=== PATIENT | female | born 1970 | race Caucasian/White ===

== ENCOUNTER 2018-11-10 16:53 | Emergency (ER) | payer OTHER, SELFPAY ==
[2018-11-10 16:55] VITALS: BP 167/87; PULSE 103; RESP 16; TEMP 36.3; O2SAT 99
--- NOTE | 2018-11-10 17:01 | W.ED.GENAD ---
Discharge Plan Disposition Patient Disposition: HOME Condition: Fair Discharge Details Chief Complaint: RespSymp Clinical Impression: URI (upper respiratory infection) Primary Care Provider: None,None ED Provider: Addis Daniel Home Meds and New Rx's Prescriptions: No Action No Known Home Meds RF: 0 Discharge Instructions Instructions: Upper Respiratory Infection (ED) Additional Instructions: Encourage hydration. Tylenol and/or Ibuprofen as needed for discomfort. Honey or lozenges to help with sore throat. If you develop shortness of breath, difficulty breathing, inability to stay hydrated or other new/worsening symptoms please seek care urgently once again. If symptoms are not improving over the next week please follow up with primary care. Wash hands frequently. Stand Alone Forms: Work Release Discharge Data Discharge Date/Time-TO BE ENTERED AT DEPARTURE: 11/10/18 17:33 Medical Decision Making Patient is a 47 year old female presenting today with c/c of URI. Endorses cough, sore throat, congestion, bilateral ear pain that began yesterday. No SOB or CP. Denies fevers. No GI upset. Patient is post menopausal. Tachy at 103. Appears comfortable and nontoxic. Has not taken anything for discomfort. Will give Tylenol, Ibuprofen and have her hydrate. Advised this is likely viral. Encouraged hydration. Discussed home remedies and OTC medications that may help with symptomatic management. Discussed new/worsening symptoms and when to seek care urgently once again. All of her questions and concerns were addressed, she is in agreement with this plan. REquesting work note for tomorrow. Patient feels improved after Tylenol and Ibuprofen. HR 100. Remains afebrile. She does not have PCP, have asked our gericare aide to help arrange for f/u . Given return precautions, she lives locally and is able to return with worsening symptoms. HPI General Mode of arrival: ambulatory. Date/Time Provider Initiated Documentation: 11/10/18 16:53. Limitations to Documentation: no limitations. Information obtained by: patient. History of Present Illness 47 year old F presents to the emergency department with the chief complaint of URI, described as moderate, Quality is described as aching (sore throat), Patient reports no radiation. Patient started experiencing this day(s) and it has been constant. No relieving factors improve symptom(s), No exacerbating factors reported . Patient notes cough; denies chest pain, fever/chills, headaches, loss of appetite, nausea/vomiting, rash and shortness of breath. Patient did receive the following treatments prior to arrival, none Related Data Home Medications Medication Instructions Recorded Confirmed Unknown [No Known Home Meds] 06/14/18 11/10/18 Allergies Allergy/AdvReac Type Severity Reaction Status Date / Time Sulfa (Sulfonamide Allergy Intermediate Skin Rash Unverified 11/10/18 16:58 Antibiotics) General Stated Complaint: RespSymp ELENI: 4 Review of Systems Constitutional Reports as per HPI and Denies headache(s) Eyes Reports as per HPI, Denies eye discharge and Denies irritation ENT Reports as per HPI, Denies ear discharge, Reports otalgia, Denies headache(s), Reports nasal congestion, Reports nasal discharge, Denies sinus pressure and Reports sore throat Cardiovascular Reports as per HPI, Denies chest pain and Denies dyspnea Respiratory Reports as per HPI, Reports chest congestion, Reports cough, Denies pain on inspiration, Denies pain with cough and Denies dyspnea Gastrointestinal Reports as per HPI, Denies abdominal pain, Denies change in bowel habits, Denies nausea and Denies vomiting Integumentary/Breasts Reports as per HPI and Denies rash Neurologic Denies headache(s) [facility] Social History Smoking/Tobacco Use Status: Never Exam Const General: cooperative, healthy appearing, comfortable, no acute distress, well developed and well groomed Nutritional Appearance: average body habitus and well nourished Orientation: alert and awake [facility] Head: normal to inspection, normocephalic and atraumatic Ears: hearing grossly normal bilaterally, external ears normal and TM's normal bilaterally General nose exam: external nose normal and nares normal Face and sinus: normal facial exam, sinuses nontender and face symmetric Mouth: oral mucosae normal, lip normal, tongue normal, oropharynx normal and moist mucous membranes Teeth and gingiva: dentition normal Throat: posterior oropharynx normal, tonsils normal and uvula midline Eyes General: appearance normal, both eyes and all related structures Neck Neck: normal visual inspection, full ROM, no lymphadenopathy and no meningeal signs Resp Effort & Inspection: normal respiratory effort, able to speak in complete sentences and no respiratory distress Auscultation: clear to auscultation bilaterally, no rales, no rhonchi and no wheezes Cardio Rate: regular rate Rhythm: regular rhythm Heart Sounds: S1 normal and S2 normal Skin General skin exam: no rashes or lesions noted Neuro General: alert and awake Cognition: normal cognition Speech: speech normal Gait: normal gait Psych Appearance: grossly normal and well kempt Mental Status: mental status grossly normal Speech and Movement: speech and movement normal Course Vital Signs Temperature 36.3 C L 11/10/18 16:55 Pulse 103 H 11/10/18 16:55 Respiratory Rate 16 11/10/18 16:55 Blood Pressure 167/87 H 11/10/18 16:55 Pulse Oximetry 99 11/10/18 16:55 Temperature 36.3 C L 11/10/18 16:55 Temperature Source Skin 11/10/18 16:55 Pulse 103 H 11/10/18 16:55 Respiratory Rate 16 11/10/18 16:55 Respiratory Effort Non-Labored 11/10/18 16:57 Blood Pressure 167/87 H 11/10/18 16:55 Pulse Oximetry 99 11/10/18 16:55 Pain Level 8 11/10/18 16:55
--- NOTE | 2018-11-10 17:10 | ED.GENADUL_ITS ---
Discharge Plan Disposition Patient Disposition: HOME Condition: Fair Discharge Details Chief Complaint: RespSymp Clinical Impression: URI (upper respiratory infection) Primary Care Provider: None,None ED Provider: Addis Daniel Home Meds and New Rx's Prescriptions: No Action No Known Home Meds RF: 0 Discharge Instructions Instructions: Upper Respiratory Infection (ED) Additional Instructions: Encourage hydration. Tylenol and/or Ibuprofen as needed for discomfort. Honey or lozenges to help with sore throat. If you develop shortness of breath, difficulty breathing, inability to stay hydrated or other new/worsening symptoms please seek care urgently once again. If symptoms are not improving over the next week please follow up with primary care. Wash hands frequently. Stand Alone Forms: Work Release Discharge Data Discharge Date/Time-TO BE ENTERED AT DEPARTURE: 11/10/18 17:33 Medical Decision Making Patient is a 47 year old female presenting today with c/c of URI. Endorses cough, sore throat, congestion, bilateral ear pain that began yesterday. No SOB or CP. Denies fevers. No GI upset. Patient is post menopausal. Tachy at 103. Appears comfortable and nontoxic. Has not taken anything for discomfort. Will give Tylenol, Ibuprofen and have her hydrate. Advised this is likely viral. Encouraged hydration. Discussed home remedies and OTC medications that may help with symptomatic management. Discussed new/worsening symptoms and when to seek care urgently once again. All of her questions and concerns were addressed, she is in agreement with this plan. REquesting work note for tomorrow. Patient feels improved after Tylenol and Ibuprofen. HR 100. Remains afebrile. She does not have PCP, have asked our home child care provider to help arrange for f/u . Given return precautions, she lives locally and is able to return with worsening symptoms. HPI General Mode of arrival: ambulatory . Date/Time Provider Initiated Documentation: 11/10/18 16:53 . Limitations to Documentation: no limitations . Information obtained by: patient . History of Present Illness 47 year old F pr esents to the emergency department with the chief complaint of URI, described as moderate, Quality is described as aching (sore throat), Patient reports no radiation. Patient started experiencing this day(s) and it has been constant. No relieving factors improve symptom(s), No exacerbating factors reported . Patient notes cough; denies chest pain, fever/chills, headaches, loss of appetite, nausea/vomiting, rash and shortness of breath. Patient did receive the following treatments prior to arrival, none Related Data Home Medications Medication Instructions Recorded Confirmed Unknown [No Known Home Meds] 06/14/18 11/10/18 Allergies Allergy/AdvReac Type Severity Reaction Status Date / Time Sulfa (Sulfonamide Allergy Intermediate Skin Rash Unverified 11/10/18 16:58 Antibiotics) General Stated Complaint: RespSymp ELENI: 4 Review of Systems Constitutional Reports as per HPI and Denies headache(s) Eyes Reports as per HPI, Denies eye discharge and Denies irritation ENT Reports as per HPI, Denies ear discharge, Reports otalgia, Denies headache(s), Reports nasal congestion, Reports nasal discharge, Denies sinus pressure and Reports sore throat Cardiovascular Reports as per HPI, Denies chest pain and Denies dyspnea Respiratory Reports as per HPI, Reports chest congestion, Reports cough, Denies pain on inspiration, Denies pain with cough and Denies dyspnea Gastrointestinal Reports as per HPI, Denies abdominal pain, Denies change in bowel habits, Denies nausea and Denies vomiting Integumentary/Breasts Reports as per HPI and Denies rash Neurologic Denies headache(s) [facility] Social History Smoking/Tobacco Use Status: Never Exam Const General: cooperative, healthy appearing, comfortable, no acute distress, well developed and well groomed Nutritional Appearance: average body habitus and well nourished Orientation: alert and awake [facility] Head: normal to inspection, normocephalic and atraumatic Ears: hearing grossly normal bilaterally, external ears normal and TM's normal bilaterally General nose exam: external nose normal and nares normal Face and sinus: normal facial exam, sinuses nontender and face symmetric Mouth: oral mucosae normal, lip normal, tongue normal, oropharynx normal and m oist mucous membranes Teeth and gingiva: dentition normal Throat: posterior oropharynx normal, tonsils normal and uvula midline Eyes General: appearance normal, both eyes and all related structures Neck Neck: normal visual inspection, full ROM, no lymphadenopathy and no meningeal signs Resp Effort & Inspection: normal respiratory effort, able to speak in complete sentences and no respiratory distress Auscultation: clear to auscultation bilaterally, no rales, no rhonchi and no wheezes Cardio Rate: regular rate Rhythm: regular rhythm Heart Sounds: S1 normal and S2 normal Skin General skin exam: no rashes or lesions noted Neuro General: alert and awake Cognition: normal cognition Speech: speech normal Gait: normal gait Psych Appearance: grossly normal and well kempt Mental Status: mental status grossly normal Speech and Movement: speech and movement normal Course Vital Signs Temperature 36.3 C L 11/10/18 16:55 Pulse 103 H 11/10/18 16:55 Respiratory Rate 16 11/10/18 16:55 Blood Pressure 167/87 H 11/10/18 16:55 Pulse Oximetry 99 11/10/18 16:55 Temperature 36.3 C L 11/10/18 16:55 Temperature Source Skin 11/10/18 16:55 Pulse 103 H 11/10/18 16:55 Respiratory Rate 16 11/10/18 16:55 Respiratory Effort Non-Labored 11/10/18 16:57 Blood Pressure 167/87 H 11/10/18 16:55 Pulse Oximetry 99 11/10/18 16:55 Pain Level 8 11/10/18 16:55
[2018-11-10] MEDS: Acetaminophen 500 MG TAB 1000 MG PO (17:13)
[2018-11-10] MEDS: Ibuprofen 600 MG TAB PO (17:13)
== END 2018-11-10 17:33 | disposition home or self-care (01) ==
LOC: ER 17:26
PROVIDERS: Emergency Provider Physician Assistant
DX: J06.9 Acute upper respiratory infection, unspecified (principal)
CPT/HCPCS: 99283

== ENCOUNTER 2018-11-15 10:06 | Emergency (ER) | payer OTHER, SELFPAY ==
[2018-11-15 10:14] VITALS: BP 152/90; PULSE 93; RESP 16; TEMP 36.4; O2SAT 96
--- NOTE | 2018-11-15 10:33 | W.ED.GENAD ---
Discharge Plan Disposition Patient Disposition: HOME Condition: Stable Discharge Details Chief Complaint: Sorethroat Clinical Impression: URI (upper respiratory infection) Primary Care Provider: Lorena Vance ED Provider: Feliciano Smith Home Meds and New Rx's Prescriptions: New benzonatate 200 mg capsule 200 mg PO TID PRN (Reason: cough) Qty: 30 RF: 0 fluticasone [Flonase Allergy Relief] 50 mcg/actuation spray,suspension 1 spray ISAIAS DAILY PRN (Reason: nasal congestion) Qty: 9.9 RF: 0 Discharge Instructions Instructions: Upper Respiratory Infection (ED) Additional Instructions: Please take prescribed medication as needed for symptoms and may also use [id number] cough and cold medication such as Tylenol cold and flu severe, Robitussin-DM, or other symptomatic medication just take as directed on packaging. If not improving over the next week please follow-up with your primary care provider for reassessment and feel free to return for any new or significant worsening of your symptoms. Referrals: Lorena Vance MD [Primary Care Provider] - (As needed for reassessment) Discharge Data Discharge Date/Time-TO BE ENTERED AT DEPARTURE: 11/15/18 10:58 Medical Decision Making Patient presenting to the emergency department for chief complaint of cold symptoms. Patient states that symptoms started approximately 6 days ago and she has had persistent nasal congestion, sinus pressure, sore throat, earache and cough. Patient states a day into illness she presented to the emergency department for evaluation and was diagnosed with viral illness and informed to take Tylenol. She states that she has been doing this but has had continued symptoms with some slight increase in nasal mucus production. Physical exam shows sinus tenderness, mildly erythematous posterior pharynx, normal TMs what is able to be visualized due to cerumen impaction, no lymphadenopathy, no tachycardia, normal lung sounds. Patient is afebrile and denies any recent fevers over the past 48 hours. Patient has no signs of meningitis, peritonsillar or retropharyngeal abscess, is nontoxic in appearance but does appear ill but comfortable. I feel that patient is having symptoms consistent with continued URI and there appears to be no emergent change in condition and no signs of bacterial illness given that patient is still within the window of more viral etiology. Patient was encouraged to take more than just plain acetaminophen for symptoms but he is more symptomatic medications such as Robitussin-DM, Tylenol cold and flu severe, and other decongestants. Patient was prescribed Flonase along with Tessalon Perles for symptoms and encouraged to follow-up with primary care if not improving over the next week. After discussion of diagnosis and plan of care patient has no further needs, questions, or concerns and states clear understanding to return to the emergency department for any worsening symptoms. HPI General Mode of arrival: ambulatory. Date/Time Provider Initiated Documentation: 11/15/18 10:20. Limitations to Documentation: no limitations. Information obtained by: patient, RN notes reviewed and old records reviewed. History of Present Illness 48 year old F presents to the emergency department with the chief complaint of cold symptoms, described as moderate, with intensity rated at 5. Quality is described as other (pressure), and is localized to the face (sinus). Patient started experiencing this day(s) (6) and it has been constant. No relieving factors improve symptom(s), No exacerbating factors reported . Patient did receive the following treatments prior to arrival, other (Tylenol) Related Data Home Medications Medication Instructions Recorded Confirmed benzonatate 200 mg PO TID PRN #30 cap 11/15/18 fluticasone [Flonase Allergy 1 spray ISAIAS DAILY PRN #9.9 gm 11/15/18 Relief] Previous Rx's Medication Instructions Recorded benzonatate 200 mg PO TID PRN #30 cap 11/15/18 fluticasone [Flonase Allergy 1 spray ISAIAS DAILY PRN #9.9 gm 11/15/18 Relief] Allergies Allergy/AdvReac Type Severity Reaction Status Date / Time Sulfa (Sulfonamide Allergy Intermediate Hives Unverified 11/15/18 10:17 Antibiotics) General Stated Complaint: Sorethroat ELENI: 4 Review of Systems Constitutional Denies body ache(s), Reports chills, Denies fever(s), Reports headache(s) and Reports malaise Eyes Denies eye discharge ENT Reports as per HPI, Reports otalgia, Reports headache(s), Reports nasal congestion, Reports nasal discharge, Denies neck pain, Reports sinus pain, Reports sinus pressure, Reports sore throat and Denies throat swelling Cardiovascular Denies chest pain and Denies dyspnea Respiratory Reports cough and Denies dyspnea Musculoskeletal Denies joint swelling and Denies neck pain Integumentary/Breasts Denies rash Neurologic Reports headache(s) Allergic/Immunologic Denies throat swelling [facility] Social History Smoking/Tobacco Use Status: Never Exam Const General: cooperative, comfortable and no acute distress Orientation: alert and awake [facility] Head: normal to inspection, normocephalic and atraumatic Ears: hearing grossly normal bilaterally and TM's normal bilaterally General nose exam: external nose normal Face and sinus: no erythema and sinus tenderness frontal and maxillary Mouth: oral mucosae normal, tongue normal, no drooling, no muffled voice and no trismus Throat: uvula midline and posterior oropharynx abnormal erythema (mild) Neck Neck: normal visual inspection, full ROM, no lymphadenopathy, no meningeal signs, trachea midline and supple Resp Effort & Inspection: normal respiratory effort, able to speak in complete sentences and cough Quality of cough: dry Auscultation: clear to auscultation bilaterally Cardio Rate: regular rate Rhythm: regular rhythm Heart Sounds: S1 normal, S2 normal, normal S1 and S2, no click, no gallops, no murmurs and no rubs Skin General skin exam: no rashes or lesions noted and dry skin (warm) Neuro General: alert, awake, oriented x3, gait normal and moves all extremities Cognition: normal cognition Speech: speech normal Course Vital Signs Temperature 36.4 C L 11/15/18 10:14 Pulse 93 H 11/15/18 10:14 Respiratory Rate 16 11/15/18 10:14 Blood Pressure 152/90 H 11/15/18 10:14 Pulse Oximetry 96 11/15/18 10:14 Temperature 36.4 C L 11/15/18 10:14 Temperature Source Skin 11/15/18 10:14 Pulse 93 H 11/15/18 10:14 Respiratory Rate 16 11/15/18 10:14 Respiratory Effort Non-Labored 11/15/18 10:14 Blood Pressure 152/90 H 11/15/18 10:14 Blood Pressure Position Sitting 11/15/18 10:14 Pulse Oximetry 96 11/15/18 10:14 Oxygen Delivery Method Room Air 11/15/18 10:14 Oxygen Flow Rate 0 11/15/18 10:14 Pain Level 0 11/15/18 10:14 Lab/Test Results Lab/Test Results: 11/15/18 10:13 Pharynx Streptococcus Screen (GILBERTO) - Pending POC Strep Test-BECCA(Rapid) Start: 11/15/18 10:15 Freq: .Rapid Strep Test Status: Active Protocol: Document 11/15/18 10:21 SGL (Rec: 11/15/18 10:21 SGL [id number]) Strep test-BECCA(Rapid)-POC POC-Strep test-BECCA (Rapid) Negative POC-Strep test-BECCA (Rapid) Negative
== END 2018-11-15 10:58 | disposition home or self-care (01) ==
PROVIDERS: Emergency Provider Nurse Practitioner Family; PCP Family Medicine
DX: J06.9 Acute upper respiratory infection, unspecified (principal)
CPT/HCPCS: 87880; 99283; 87081

== ENCOUNTER 2019-01-10 09:40 | Emergency (ER) | payer OTHER, SELFPAY ==
[2019-01-10 09:48] VITALS: BP 135/85; PULSE 79; RESP 20; TEMP 36.5; O2SAT 97
--- NOTE | 2019-01-10 10:13 | W.ED.GENAD ---
Discharge Plan Disposition Patient Disposition: HOME Condition: Stable Discharge Details Chief Complaint: Orthopedic Clinical Impression: Knee pain, right Primary Care Provider: Lorena Vance ED Provider: Jarvis Thrasher Home Meds and New Rx's Prescriptions: New gabapentin 300 mg capsule 300 mg PO TID Qty: 60 RF: 0 Discharge Instructions Instructions: Knee Pain (ED) Additional Instructions: you can take 1000mg tylenol and 600mg ibuprofen every 6 hours for pain as needed follow up with your primary care provider in 1-2 weeks if you develop fevers, significant leg swelling or the knee becomes red and swollen return to the emergency department for reevaluation Stand Alone Forms: Work Release Medical Decision Making pt states she has had right knee munira for 3 yeras. Denies recent falls or other trauma. She has not had fevers. On exam she has full rom of the knee, has pain over both medial and lateral joint lines with no swelling, redness or warmth on exam. No leg swelling or calf pain and intact distal sensation. Based on exam doubt septic joint, dvt. No systemic symptoms to suggest osteo. I suspect arthritis. Given no trauma, full rom and bearinb weight do not feel xray indicated. Will have her start nsaids, tylenol and gabapentin and advised f/u with pcp if pain continues, return precautions given Differential Diagnosis arthritis, sprain, strain HPI General Mode of arrival: ambulatory. Date/Time Provider Initiated Documentation: 01/10/19 09:58. Limitations to Documentation: no limitations. Information obtained by: patient. History of Present Illness 48 year old F presents to the emergency department with the chief complaint of right knee pain, described as moderate, with intensity rated at 5. Quality is described as aching, and is localized to the right and lower extremity. Patient reports no radiation. Patient started experiencing this year(s) (3) and it has been constant. No relieving factors improve symptom(s), No exacerbating factors reported . Patient notes no other symptoms.. Patient did receive the following treatments prior to arrival, NSAID Related Data Home Medications Medication Instructions Recorded Confirmed gabapentin 300 mg PO TID #60 cap 01/10/19 Previous Rx's Medication Instructions Recorded gabapentin 300 mg PO TID #60 cap 01/10/19 Allergies Allergy/AdvReac Type Severity Reaction Status Date / Time Sulfa (Sulfonamide Allergy Intermediate Hives Unverified 01/10/19 09:49 Antibiotics) General Stated Complaint: Orthopedic ELENI: 4 Review of Systems Review of Systems All systems reviewed & are unremarkable except as noted in HPI and below Constitutional Denies chills and Denies fever(s) Respiratory Denies cough Gastrointestinal Denies abdominal pain, Denies nausea and Denies vomiting Musculoskeletal Denies joint swelling Integumentary/Breasts Denies rash PFSH Social History Smoking and Tabacco status: Never Exam Const General: no acute distress Orientation: alert [facility] Head: normal to inspection Ears: external ears normal General nose exam: external nose normal Mouth: moist mucous membranes Eyes General: appearance normal, both eyes and all related structures Neck Neck: normal visual inspection Resp Effort & Inspection: normal respiratory effort and able to speak in complete sentences Cardio Rate: regular rate Skin General skin exam: no rashes or lesions noted Neuro General: alert and oriented x3 Extrem General: normal to inspection Psych Mental Status: mental status grossly normal Course Vital Signs Temperature 36.5 C 01/10/19 09:48 Pulse 79 01/10/19 09:48 Respiratory Rate 20 01/10/19 09:48 Blood Pressure 135/85 01/10/19 09:48 Pulse Oximetry 97 01/10/19 09:48 Temperature 36.5 C 01/10/19 09:48 Temperature Source Temporal Artery Scan 01/10/19 09:48 Pulse 79 01/10/19 09:48 Respiratory Rate 20 01/10/19 09:48 Respiratory Effort Non-Labored 01/10/19 09:48 Blood Pressure 135/85 01/10/19 09:48 Blood Pressure Position Sitting 01/10/19 09:48 Pulse Oximetry 97 01/10/19 09:48 Oxygen Delivery Method Room Air 01/10/19 09:48 Oxygen Flow Rate 0 01/10/19 09:48 Pain Level 5 01/10/19 09:50
--- NOTE | 2019-01-10 10:17 | ED.GENADUL_ITS ---
Discharge Plan Disposition Patient Disposition: HOME Condition: Stable Discharge Details Chief Complaint: Orthopedic Clinical Impression: Knee pain, right Primary Care Provider: Lorena Vance ED Provider: Jarvis Thrasher Home Meds and New Rx's Prescriptions: New gabapentin 300 mg capsule 300 mg PO TID Qty: 60 RF: 0 Discharge Instructions Instructions: Knee Pain (ED) Additional Instructions: you can take 1000mg tylenol and 600mg ibuprofen every 6 hours for pain as needed follow up with your primary care provider in 1-2 weeks if you develop fevers, significant leg swelling or the knee becomes red and swollen return to the emergency department for reevaluation Stand Alone Forms: Work Release Medical Decision Making pt states she has had right knee munira for 3 yeras. Denies recent falls or other trauma. She has not had fevers. On exam she has full rom of the knee, has pain over both medial and lateral joint lines with no swelling, redness or warmth on exam. No leg swelling or calf pain and intact distal sensation. Based on exam doubt septic joint, dvt. No systemic symptoms to suggest osteo. I suspect arthritis. Given no trauma, full rom and bearinb weight do not feel xray indicated. Will have her start nsaids, tylenol and gabapentin and advised f/u with pcp if pain continues, return precautions given Differential Diagnosis arthritis, sprain, strain HPI General Mode of arrival: ambulatory . Date/Time Provider Initiated Documentation: 01/10/19 09:58 . Limitations to Documentation: no limitations . Information obtained by: patient . History of Present Illness 48 year old F presents to the emergency department with the chief complaint of right knee pain, described as moderate, with intensity rated at 5. Quality is described as aching, and is localized to the right and lower extremity. Patient reports no radiation. Patient started experiencing this year(s) (3) and it has been constant. No relieving factors improve symptom(s), No exacerbating factors reported . Patient notes no other symptoms.. Patient did receive the following treatments prior to arrival, NSAID Related Data Home Medications Medication Instructions Recorded Confirmed gabapentin 300 mg PO TID #60 cap 01/10/19 Previous Rx's Medication Instructions Recorded gabapentin 300 mg PO TID #60 cap 01/10/19 Allergies Allergy/AdvReac Type Severity Reaction Status Date / Time Sulfa (Sulfonamide Allergy Intermediate Hives Unverified 01/10/19 09:49 Antibiotics) General Stated Complaint: Orthopedic ELENI: 4 Review of Systems Review of Systems All systems reviewed & are unremarkable except as noted in HPI and below Constitutional Denies chills and Denies fever(s) Respiratory Denies cough Gastrointestinal Denies abdominal pain, Denies nausea and Denies vomiting Musculoskeletal Denies joint swelling Integumentary/Breasts Denies rash PFSH Social History Smoking and Tabacco status: Never Exam Const General: no acute distress Orientation: alert [facility] Head: normal to inspection Ears: external ears normal General nose exam: external nose normal Mouth: moist mucous membranes Eyes General: appearance normal, both eyes and all related structures Neck Neck: normal visual inspection Resp Effort & Inspection: normal respiratory effort and able to speak in complete sentences Cardio Rate: regular rate Skin General skin exam: no rashes or lesions noted Neuro General: alert and oriented x3 Extrem General: normal to inspection Psych Mental Status: mental status grossly normal Course Vital Signs Temperature 36.5 C 01/10/19 09:48 Pulse 79 01/10/19 09:48 Respiratory Rate 20 01/10/19 09:48 Blood Pressure 135/85 01/10/19 09:48 Pulse Oximetry 97 01/10/19 09:48 Temperature 36.5 C 01/10/19 09:48 Temperature Source Temporal Artery Scan 01/10/19 09:48 Pulse 79 01/10/19 09:48 Respiratory Rate 20 01/10/19 09:48 Respiratory Effort Non-Labored 01/10/19 09:48 Blood Pressure 135/85 01/10/19 09:48 Blood Pressure Position Sitting 01/10/19 09:48 Pulse Oximetry 97 01/10/19 09:48 Oxygen Delivery Method Room Air 01/10/19 09:48 Oxygen Flow Rate 0 01/10/19 09:48 Pain Level 5 01/10/19 09:50
== END 2019-01-10 10:21 | disposition home or self-care (01) ==
PROVIDERS: Emergency Provider Emergency Medicine; PCP Nurse Practitioner Family
DX: M25.561 Pain in right knee (principal)
CPT/HCPCS: 99282

== ENCOUNTER 2019-01-14 12:08 | Outpatient (REF) | payer OTHER, SELFPAY ==
[2019-01-15 13:42] LABS: Chlamydia Result Negative; GC Result Negative; Specimen Description URINE
== END 2019-01-14 12:28 ==
LOC: NCHCN 12:08
PROVIDERS: PCP Nurse Practitioner Family; Visit Provider Nurse Practitioner Family
DX: Z11.3 Encounter for screening for infections with a predominantly sexual mode of transmission (principal); Z00.00 Encounter for general adult medical examination without abnormal findings
CPT/HCPCS: 87491; 87591

== ENCOUNTER 2019-01-21 07:16 | Outpatient (CLI) | payer OTHER, SELFPAY ==
[2019-01-22 09:58] LABS: HIV-1/2 Ag & Ab Screen Negative (NEGAT)
[2019-01-22 12:35] LABS: Syphilis Serology (RPR) Negative (Negative)
== END 2019-01-21 07:36 ==
PROVIDERS: PCP Nurse Practitioner Family; Visit Provider Nurse Practitioner Family
DX: Z00.00 Encounter for general adult medical examination without abnormal findings (principal); Z11.4 Encounter for screening for human immunodeficiency virus [HIV]; Z11.3 Encounter for screening for infections with a predominantly sexual mode of transmission; K92.1 Melena
CPT/HCPCS: 36415; 87389; 86592

== ENCOUNTER 2019-01-28 00:51 | Outpatient (CLI) | payer OTHER, SELFPAY ==
--- NOTE | 2019-01-28 08:01 | DI.MAMMO_ITS ---
SYMPTOM/DIAGNOSIS: SCREEN, H/O FIBROCYSTIC BREAST DISEASE MAMMOGRAM: Mammograms were interpreted according to the usual protocol including computer analysis with CAD system, tomosynthesis and C view imaging. No priors for comparison. Breast density B. No suspicious masses or microcalcifications are seen. There is no definite evidence of malignancy. IMPRESSION: Category 1-B. Negative mammogram. Routine screening is recommended. [facility] ASSESSMENT OF FINDINGS: Negative. Category 1. Patient will receive a letter notifying them of these results. BI-RADS category B. There are scattered areas of fibroglandular density.
== END 2019-01-28 01:11 ==
PROVIDERS: PCP Nurse Practitioner Family; Visit Provider Nurse Practitioner Family
DX: Z12.31 Encounter for screening mammogram for malignant neoplasm of breast (principal)
CPT/HCPCS: 77063; 77067

== ENCOUNTER 2019-01-28 11:10 | Outpatient (REF) | payer OTHER, SELFPAY ==
--- NOTE | 2019-01-28 09:45 | PAPFT_PTH ---
PATIENT: Jacquie Mcguire LOC: [facility] U#:[id number] AGE/SX: 48/F ROOM: RE01/28/[address]: Vicente Whitehead : 1970 BED: DIS: 01/28/2019 SPEC #: [id number] RECD: 01/28/19 12:54 STATUS: BERTO REQ #: [id number] JEROMY: 01/28/19 09:[address]: Vicente Whitehead DEPT: [facility] Cytology RECD BY: Tuan Pereyra Tissues: 1 - CX/ENDOCX FOR PAP SMEARS Procedures: PAP THIN PREP/UVM Screening HPV DNA PROBE Comments: [id number]
[2019-01-28 13:05] LABS: Absolute Basophil Count 0.09 k/cumm (0.0-0.2); Absolute Eosinophil Count 0.23 k/cumm (0.0-0.7); Absolute Monocyte Count 0.53 k/cumm (0.11-0.7); Absolute Neutrophil Count 1.53 k/cumm (1.2-6.7); Basophils % 2.3; Eosinophils % 5.9; HCT 44.2 % (36.0-46.0); HGB 14.5 g/dL (12.0-15.5); Lymphocytes % 38.7; Mean Corp. HGB Concentration 32.8 g/dL (32.0-36.0); Mean Corpuscular Hemoglobin 29.1 pg (27.0-33.0); Mean Corpuscular Volume 88.8 fL (80-95); Mean Platelet Volume 9.6 fL (8.0-11.0); Monocytes % 13.7; Neutrophils % 39.4; Platelet Count 360 x1000/uL (130-400); RBC 4.98 m/cumm (4.00-5.20); RBC Distribution Width 14.3 % (11.7-14.6); White Blood Cell Count 3.88 k/cumm (4.4-10.8)
[2019-01-28 13:18] LABS: ALT 35 U/L (12-78); AST 25 U/L (15-37); Albumin 4.1 g/dL (3.4-5.0); Alkaline Phosphatase 113 U/L (46-116); Anion Gap 8.2 mmol/L (3-11); BUN 21 mg/dL (7-18); Bilirubin, Total 0.5 mg/dL (0.2-1.0); CO2 28.8 mmol/L (21.0-32.0); CREATININE 0.68 mg/dL (0.55-1.02); Chloride 103 mmol/L (98-107); Cholesterol 228 mg/dL (50-200); Glucose 90 mg/dL (70-100); HDL Cholesterol 73 mg/dL (40-60); LDL CHOLESTEROL 140 mg/dL (<100); Potassium 4.6 mmol/L (3.5-5.1); Sodium 140 mmol/L (136-145); Total Protein 7.9 g/dL (6.4-8.2); Triglyceride 81 mg/dL (30-150)
== END 2019-01-28 11:30 ==
LOC: NCHCN 11:10
PROVIDERS: PCP Nurse Practitioner Family; Visit Provider Nurse Practitioner Family
DX: Z00.00 Encounter for general adult medical examination without abnormal findings (principal); K21.9 Gastro-esophageal reflux disease without esophagitis; K92.1 Melena; Z13.220 Encounter for screening for lipoid disorders; Z87.898 Personal history of other specified conditions; Z12.4 Encounter for screening for malignant neoplasm of cervix; Z11.51 Encounter for screening for human papillomavirus (HPV)
CPT/HCPCS: 80053; 80061; 83721; 88142; 85025; 87624

== ENCOUNTER 2019-02-09 08:04 | Day surgery (SDC) | payer OTHER, SELFPAY ==
--- NOTE | 2019-02-09 06:51 | ENDO_ITS ---
Date of service: 02/09/19 Time of Service: 08:53 Endoscopy Report DATE OF PROCEDURE: 02/09/19 PRE-OP DIAGNOSIS: Rectal bleeding and Heart Burn POST-OP DIAGNOSIS: other (Normal upper endoscopy/ colorectal polyps/ grade 2 internal hemorrhoids) PROCEDURE: 1. EGD 2. Colonoscopy with polypectomy by cold forceps and hot snare SURGEON: Yuliana Geiger ANESTHESIA: other (General/ ASA 2 /Krystian Gonzalez CRNA) ESTIMATED BLOOD LOSS: 5 PATHOLOGY: other (Descending polyp and sigmoid polyp) COMPLICATIONS: None DISPOSITION: same day INDICATIONS: Mrs. Mcguire is a pleasant 48 year old female who was seen in the office for rectal bleeding and heart burn. Patient is on omeprazole 20 mg daily. Risks, benefits and complications have been reviewed. Complications include but are not limited to bleeding, pain, perforation, missed small lesion/polyp, sore throat, aspiration and adverse reaction to the medications. Questions were entertained and answered to their satisfaction and they wished to proceed. No guarantees were given or implied. PREP: Miralax/Dulcolax PROCEDURE START TIME: :53 PROCEDURE END TIME: :22 COLONOSCOPY RETRACTION TIME: 16 minutes FINDINGS: Normal upper endoscopy Colonoscopy- 2 polyps and internal hemorrhoids PROCEDURE DESCRIPTION: After informed consent was obtained the patient was take to the procedure room and placed in a supine position. Monitors were applied and a time out was done. The patients name, date of , procedure type, allergies to medications and metal in their body was reviewed. A bite block was placed and the patient was sedated. Once sedated and comfortable the gastroscope was advanced through the oropharynx which was grossly normal into the esophagus. The proximal and mid- esophagus were normal. In the distal esophagus there was no inflammation noted. The scope was advanced into the stomach and through the pylorus into the 3rd portion of the duodenum. The duodenum was noted to be normal. The scope was retracted back into the stomach. There was no inflammation noted in the stomach. The scope was retro-flexed. The cardia and fundus were noted to be normal. There was no hiatal hernia noted. The scope was retracted back into the esophagus. The esophagus was normal. The Z line was regular. The GE junction was at 35 cm. While the patient was still sedated they were placed in a left decubitous position. A rectal exam was done. External exam was normal. Internal exam revealed a normal sphincter tone and no palpable masses. The scope was then introduced and retro-flexed. Grade 2 internal hemorrhoids were identified. The scope was then advanced to the cecum without difficulty. The TI and appendiceal orifice were identified. The prep was good. The scope was then slowly retracted over 16 minutes back into the rectum. One polyp was removed in the descending colon with a cold forceps. A large 2 cm pedunculated polyp was removed in the sigmoid colon with a hot snare. The scope was removed and the patient was woken up and taken back to Same day surgery in stable condition. The patient tolerated the procedure well and there were no immediate complications. Follow up: I will call with results and then give a recommendation on timing for her next colonoscopy. Continue antacid therapy.
--- NOTE | 2019-02-09 06:54 | W.PM.DSUDISC ---
Discharge Plan Disposition Patient Disposition: HOME Condition: Good Discharge Details Reason For Visit: Rectal bleeding/ Heart Burn Attending Provider: Yuliana Geiger Primary Care Provider: Vicente Whitehead Home Meds and New Rx's Prescriptions: Continued omeprazole 20 mg tablet,delayed release (DR/EC) 20 mg PO DAILY RF: 0 aspirin 81 mg tablet,delayed release (DR/EC) 81 mg PO DAILY RF: 0 calcium carbonate [Calcium 500] 500 mg calcium (1,250 mg) tablet 500 mg PO DAILY RF: 0 Women's One Daily 18 mg iron-400 mcg-500 mg Ca Tablet 1 tab PO DAILY RF: 0 Discontinued polyethylene glycol 3350 17 gram/dose powder 238 g PO ONCE Qty: 238 RF: 0 bisacodyl [Dulcolax (bisacodyl)] 5 mg tablet,delayed release (DR/EC) 5 mg PO ONCE Qty: 4 RF: 0 Discharge Instructions Instructions: Colonoscopy (DC), Upper Endoscopy (DC), Colorectal Polyps (DC), Hemorrhoids (DC) Additional Instructions: Findings: Upper endoscopy was normal 1. 2 polyps removed in the large bowel 2. Internal hemorrhoids Follow up: depends on final pathology Please call if you develop: fevers >101.5 Nausea or Vomiting Abdominal pain that is not transient DAY SURGERY UNIT POST COLONOSCOPY INSTRUCTIONS 1. Because there will be medication in your system for the next 24 hours, you may feel a little sleepy. Your coordination will be affected. Therefore: a. Do not drive or operate dangerous equipment for 24 hours. b. Do not drink alcohol beverages for 24 hours (not even beer). c. Plan to go home and rest for the day. 2. Generally there are no restrictions on your activity after a day or so has gone by, but you may feel a bit fatigued for a few days. 3 After you arrive home you may have a light meal and return to a normal diet as you can tolerate it without feeling sick to your stomach. 4. After surgery, you may feel pain or discomfort. This should be only transient, but if it persists please contact your doctor. 5. If there are any questions regarding the findings of your procedure, please feel free to contact your doctor. 6. If you are unable to contact your doctor with a problem, contact the hospital at [phone]. 7. Continue all your regular medications unless directed otherwise. I understand the above instructions and have no questions. Signature of Patient or Responsible Adult Escort Date/Time Name of Responsible Adult Escort Signature of Nurse Date/Time Stand Alone Forms: DSU Post EGD Instructions, Coral Mcclure (DSU) Activity:: Activity as Tolerated Diet:: As Tolerated Discharge Orders Discharge Orders: Discharge Order (Routine); Ordered 02/09/19 Ordered By: Yuliana Geiger DS: Diagnosis Discharge Diagnosis (1) H/O esophagogastroduodenoscopy: Status: Chronic (2) S/P colonoscopy: Status: Acute (3) Colorectal polyps: Status: Acute (4) Internal hemorrhoids without complication: Status: Acute
[2019-02-09 08:15] VITALS: BP 123/86; PULSE 85; RESP 16; TEMP 35.4; O2SAT 97
[2019-02-09] MEDS: Lactated Ringers 1,000 ML 80 ML IV (08:40)
--- NOTE | 2019-02-09 09:10 | BOWEL_PTH ---
PATIENT: Jacquie Mcguire LOC: [facility] U#:[id number] AGE/SX: 48/F ROOM: RE02/09/[address]: Yuliana Geiger MD : 1970 BED: DIS: 02/09/2019 SPEC #: [id number] RECD: 02/09/19 12:57 STATUS: BERTO REQ #: [id number] JEROMY: 02/09/19 09:[address]: Yuliana Geiger DEPT: Surgical Specimen RECD BY: Sarah Gonzales ENTERED: 02/09/19 12:58 SP TYPE: Bowel OTHR DR: Vicente Whitehead Tissues: 1 - BIOPSY BOWEL 2 - BIOPSY BOWEL Procedures: GROSS AND MICRO LEVEL 4 Comments: [id number]
[2019-02-09 10:01] VITALS: BP 124/70; PULSE 70; RESP 18; TEMP 35.7; O2SAT 94
== END 2019-02-09 10:15 | disposition home or self-care (01) ==
LOC: SUR 08:05
PROVIDERS: PCP Nurse Practitioner Family; Visit Provider Surgery
PROC: (CPT 45385; principal; 2019-02-09 08:45)
DX: K62.5 Hemorrhage of anus and rectum (principal); D12.4 Benign neoplasm of descending colon; D12.5 Benign neoplasm of sigmoid colon; K64.0 First degree hemorrhoids; R12 Heartburn; K21.9 Gastro-esophageal reflux disease without esophagitis
CPT/HCPCS: 45385; 45380; 43235; 81025; 88305

== ENCOUNTER 2019-02-18 00:23 | Outpatient (CLI) | payer OTHER, SELFPAY ==
--- NOTE | 2019-02-18 08:00 | DI.US_ITS ---
SYMPTOM/DIAGNOSIS: DYSPAREUNIA, N94.10, CRAMPS, R25.2 PELVIC ULTRASOUND: A transabdominal and transvaginal examination was carried out. The uterus measures 8 cm in length, 3.8 cm. in height and 6.2 cm. in width with an endometrial stripe thickness of 4.7 mm. A 2.5 by 2.4 by 2.8 cm. fibroid is noted in the uterine fundus. A 1.8 by 1.4 by 2.5 cm. fibroid is noted in the anterior body of the uterus and a 4 by 3.4 by 2.8 cm. fibroid is identified in the right lateral portion of the proximal uterine body. Neither the right nor left ovary was visualized. The kidneys appear intact. The right kidney measures 10.8 by 4.1 by 5.0 cm. and the left kidney measures 12 by 5.0 by 5.6 cm. There is no evidence of free pelvic fluid. SUMMARY: Multiple uterine fibroids are demonstrated as described above. The ovaries were not visualized in this patient.
--- NOTE | 2019-02-18 08:56 | DI.RAD_ITS ---
SYMPTOM/DIAGNOSIS: RT KNEE PAIN, M25.561, S/P FALL RIGHT KNEE: The bony structures are normally mineralized. There is an apparent region of spurring involving the patella at the insertion of the patellar tendon. There is no evidence of a joint effusion or acute fracture or dislocation.
== END 2019-02-18 00:43 ==
PROVIDERS: PCP Nurse Practitioner Family; Visit Provider Nurse Practitioner Family
DX: M25.561 Pain in right knee (principal); N94.10 Unspecified dyspareunia; N94.6 Dysmenorrhea, unspecified; D25.9 Leiomyoma of uterus, unspecified
CPT/HCPCS: 73562; 76830; 76856

== ENCOUNTER 2019-02-24 08:38 | Outpatient (CLI) | payer OTHER, SELFPAY ==
--- NOTE | 2019-02-24 08:32 | DI.RAD_ITS ---
SYMPTOMS/DIAGNOSIS: RT KNEE PAIN LOCATED AROUND PATELLA BILATERAL KNEES: Merchant views of the knees were obtained. Comparison x-ray of the right knee is 02/18/19. The patellofemoral joint space is well maintained. The articular surfaces are unremarkable. The alignment of the patella appears within normal limits.
== END 2019-02-24 08:58 ==
PROVIDERS: PCP Nurse Practitioner Family; Visit Provider Physician Assistant
DX: M25.561 Pain in right knee (principal)
CPT/HCPCS: 73565

== ENCOUNTER 2019-03-03 00:27 | Outpatient (CLI) | payer OTHER, SELFPAY ==
--- NOTE | 2019-03-03 07:02 | DI.MRI_ITS ---
SYMPTOM/DIAGNOSIS: 3 YEAR HISTORY OF RT KNEE PAIN, M25.569, MULTIPLE FALLS RIGHT KNEE MRI: Axial T 2 fat sat, coronal proton density and coronal T 2 fat sat, sagittal proton density, sagittal T 2 fat sat, sagittal proton density, thin ACL pulse sequences were performed. The bony signal is normal. The extensor mechanism of the knee is intact. The cruciate ligaments are well maintained. There is no evidence of a meniscal tear. The patella and patellar cartilage and medial and patellar retinaculum and mediolateral collateral ligaments of the knee appear intact. SUMMARY: No evidence of an internal derangement. The study is within normal limits.
== END 2019-03-03 00:47 ==
PROVIDERS: PCP Nurse Practitioner Family; Visit Provider Student in an Organized Health Care Education/Training Program
DX: M25.561 Pain in right knee (principal); R29.6 Repeated falls
CPT/HCPCS: 73721

== ENCOUNTER 2019-07-25 09:02 | Emergency (ER) | payer SELFPAY ==
--- NOTE | 2019-07-25 09:08 | NUR.NOTE ---
Nursing Note: pt developed upper respiratory symptoms with productive cough 3 days ago PT states she has had a fever of 101.9 however is currently 36.4 c and not taking any antipyretics pt also complains of right5 sided ear pain. moderate redness on exam no drainage
[2019-07-25 09:10] VITALS: BP 126/84; PULSE 97; RESP 18; TEMP 36.4; O2SAT 95
--- NOTE | 2019-07-25 09:26 | W.ED.GENAD ---
Discharge Plan Disposition Patient Disposition: HOME Condition: Good Discharge Details Chief Complaint: RespSymp Clinical Impression: Viral URI Primary Care Provider: Vicente Whitehead ED Provider: Addis Daniel Home Meds and New Rx's Prescriptions: New lidocaine HCl [Lidocaine Viscous] 2 % solution 1 applic MM QID PRN (Reason: pain) Qty: 600 RF: 0 benzonatate [Tessalon Perles] 100 mg capsule 100 mg PO TID PRN (Reason: cough) Qty: 14 RF: 0 Continued sertraline 50 mg tablet 75 mg PO DAILY RF: 0 omeprazole 20 mg tablet,delayed release (DR/EC) 20 mg PO DAILY RF: 0 aspirin 81 mg tablet,delayed release (DR/EC) 81 mg PO DAILY RF: 0 calcium carbonate [Calcium 500] 500 mg calcium (1,250 mg) tablet 500 mg PO DAILY RF: 0 Women's One Daily 18 mg iron-400 mcg-500 mg Ca Tablet 1 tab PO DAILY RF: 0 Discharge Instructions Instructions: Upper Respiratory Infection (ED) Additional Instructions: Encourage hydration. Tylenol and ibuprofen as needed for discomfort. Your rapid strep testing was negative. You do not appear to have an ear infection. If you develop difficulty breathing, shortness of breath, inability stay hydrated or other new/worsening symptoms please seek care urgently once again. You may use the viscous lidocaine to help with sore throat and Tessalon Perles to help with cough as needed. Please follow-up with primary care in 1 week if not improving. Referrals: Vicente Whitehead, AOC [employer] OPERATIONS STAFF OFFICER [Primary Care Provider] - Discharge Data Discharge Date/Time-TO BE ENTERED AT DEPARTURE: 07/25/19 10:09 Medical Decision Making Patient is a 48 year old female with URI x 3 days. Endorses cough, sore throat, right ear pain. Reports fevers at home, afebrile here. Has not taken any antipyretics. She appears nontoxic. Lungs are clear. Normal right ear. Her posterior oropharynx is erythematous with bilateral tonsillar swelling and exudate on the right. No unilateral swelling, change in voice, swelling under tongue. Uvula is midline. Full ROM of TMJ. Rapid strep negative. Advised likely viral etiology. Enocurage hydration. Will prescribe tessalon perles and viscous lidocaine to help with sympatomic management. Advise follow-up with primary care if not improving over the next 1 to 2 weeks. She is given strict return precautions. All her questions and concerns were addressed and she is in agreement this plan. HPI General Mode of arrival: ambulatory. Date/Time Provider Initiated Documentation: 07/25/19 09:26. Limitations to Documentation: no limitations. Information obtained by: patient and RN notes reviewed. HPI Narrative: Patient is a 48 year old female presenting today with c/c of 3 days of URI sxs with cough, right ear pain, congestion and fever. Denies SOB, no CP or pleuritic pain. T max 101.9 at home. Has not taken anything for symptomatic management. Denies recnet travel, no recent abx. Related Data Home Medications Medication Instructions Recorded Confirmed aspirin 81 mg tablet,delayed 81 mg PO DAILY 01/28/19 07/25/19 release calcium carbonate 500 mg calcium 500 mg PO DAILY tab 01/28/19 07/25/19 (1,250 mg) tablet omeprazole 20 mg tablet,delayed 20 mg PO DAILY 01/28/19 07/25/19 release Women's One Daily 1 tab PO DAILY 02/09/19 07/25/19 sertraline 50 mg tablet 75 mg PO DAILY tab 04/14/19 07/25/19 benzonatate [Tessalon Perles] 100 mg PO TID PRN #14 cap 07/25/19 lidocaine HCl [Lidocaine Viscous] 1 applic MM QID PRN #600 ml 07/25/19 Previous Rx's Medication Instructions Recorded benzonatate [Tessalon Perles] 100 mg PO TID PRN #14 cap 07/25/19 lidocaine HCl [Lidocaine Viscous] 1 applic MM QID PRN #600 ml 07/25/19 Allergies Allergy/AdvReac Type Severity Reaction Status Date / Time Sulfa (Sulfonamide Allergy Intermediate Skin Rash Verified 07/25/19 09:12 Antibiotics) gabapentin AdvReac severe Verified 07/25/19 09:12 dizziness General Stated Complaint: RespSymp ELENI: 4 Review of Systems Constitutional Reports as per HPI, Denies chills, Reports fatigue, Reports fever(s), Denies headache(s) and Denies poor appetite Eyes Reports as per HPI, Denies eye discharge and Denies irritation ENT Reports as per HPI and Denies headache(s) Cardiovascular Reports as per HPI, Denies chest pain and Denies dyspnea Respiratory Reports as per HPI and Denies dyspnea Gastrointestinal Reports as per HPI, Denies abdominal pain, Denies change in bowel habits, Denies nausea and Denies vomiting Integumentary/Breasts Reports as per HPI and Denies rash Neurologic Reports as per HPI and Denies headache(s) Endocrine Reports fatigue [facility]1983 Medical History Colorectal polyps (Acute) Fibrocystic breast disease (Chronic) GERD (gastroesophageal reflux disease) (Chronic) Hematochezia (Acute) Internal hemorrhoids without complication (Acute) Knee joint pain (Chronic) Paresthesia and pain of extremity (Chronic) Surgical History H/O esophagogastroduodenoscopy (Chronic ~02/09/19) History of tubal ligation (Chronic) S/P colonoscopy (Acute ~02/09/19) Social History Smoking/Tobacco Use Status: Never Alcohol Intake: current Alcohol Intake frequency: a few times a month Alcohol type: wine Drug use: Never Substance use type: does not use 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 Do you feel safe at home: Yes Do you feel safe in your relationship?: Yes Exam Const General: cooperative, healthy appearing, comfortable, no acute distress, well developed and well groomed Nutritional Appearance: average body habitus and well nourished Orientation: alert and awake [facility] Head: normal to inspection, normocephalic and atraumatic Ears: hearing grossly normal bilaterally, external ears normal and TM's normal bilaterally General nose exam: external nose normal and nares normal Face and sinus: normal facial exam, sinuses nontender and face symmetric Mouth: oral mucosae normal, lip normal, tongue normal, oropharynx normal and moist mucous membranes Teeth and gingiva: dentition normal Throat: uvula midline and abnormal tonsil bilaterally erythema, exudates (one area of white exudate on right tonsil) and hypertrophy 1+ Eyes General: appearance normal, both eyes and all related structures Neck Neck: normal visual inspection, full ROM, no meningeal signs and lymphadenopathy Resp Effort & Inspection: normal respiratory effort, able to speak in complete sentences and no respiratory distress Auscultation: clear to auscultation bilaterally, no rales, no rhonchi and no wheezes Cardio Rate: regular rate Rhythm: regular rhythm Heart Sounds: S1 normal and S2 normal Skin General skin exam: no rashes or lesions noted Neuro General: alert and awake Cognition: normal cognition Speech: speech normal Gait: normal gait Psych Appearance: grossly normal and well kempt Mental Status: mental status grossly normal Speech and Movement: speech and movement normal Course Vital Signs Temperature 36.4 C L 07/25/19 09:10 Pulse 97 H 07/25/19 09:10 Respiratory Rate 18 07/25/19 09:10 Blood Pressure 126/84 07/25/19 09:10 Pulse Oximetry 95 07/25/19 09:10 Temperature 36.4 C L 07/25/19 09:10 Temperature Source Skin 07/25/19 09:10 Pulse 97 H 07/25/19 09:10 Respiratory Rate 18 07/25/19 09:10 Respiratory Effort 07/25/19 09:12 Blood Pressure 126/84 07/25/19 09:10 Blood Pressure Position Sitting 07/25/19 09:10 Pulse Oximetry 95 07/25/19 09:10 Oxygen Delivery Method Room Air 07/25/19 09:10 Oxygen Flow Rate 0 07/25/19 09:10
== END 2019-07-25 10:09 | disposition home or self-care (01) ==
PROVIDERS: Emergency Provider Physician Assistant; PCP Nurse Practitioner Family
DX: J06.9 Acute upper respiratory infection, unspecified (principal); R05 Cough; H92.01 Otalgia, right ear
CPT/HCPCS: 87880; 99283; 87081

== ENCOUNTER 2020-01-10 10:49 | Outpatient (CLI) | payer OTHER, SELFPAY ==
--- NOTE | 2020-01-10 | DI.RAD_ITS ---
EXAM: XR ANKLE LT COMPLETE CLINICAL HISTORY: ANKLE JOINT PAIN LT, M25.572 TECHNIQUE: COMPARISON: RIGHT ANKLE COMPLETE from 02/14/2013 FINDINGS: Three views were obtained. There is a small osteophyte of the plantar fascia attachment on the calca neus. No other bony abnormality seen. The ankle mortise is well maintained. IMPRESSION:
== END 2020-01-10 11:09 ==
PROVIDERS: PCP Nurse Practitioner Family; Visit Provider Nurse Practitioner Family
DX: M25.572 Pain in left ankle and joints of left foot (principal); M77.32 Calcaneal spur, left foot
CPT/HCPCS: 73610

== ENCOUNTER 2020-02-06 21:33 | Emergency (ER) | payer OTHER, SELFPAY ==
[2020-02-06 21:39] VITALS: BP 130/80; PULSE 99; RESP 16; TEMP 36.6; O2SAT 96
--- NOTE | 2020-02-06 21:56 | W.ED.GENAD ---
Discharge Plan Disposition Patient Disposition: HOME Condition: Stable Discharge Details Chief Complaint: RespSymp Clinical Impression: Sinusitis, URI (upper respiratory infection) Primary Care Provider: Vicente Whitehead ED Provider: Selena Choi Home Meds and New Rx's Prescriptions: New fluticasone furoate 27.5 mcg/actuation spray,suspension 1 spray ISAIAS DAILY 7 Days Qty: 9.1 RF: 0 benzonatate [Tessalon Perles] 100 mg capsule 100 mg PO BID PRN (Reason: cough) Qty: 10 RF: 0 albuterol sulfate 90 mcg/actuation HFA aerosol inhaler 2 puff IH Q6H PRN (Reason: shortness of breath or wheezing) Qty: 8 RF: 0 Continued omeprazole 20 mg tablet,delayed release (DR/EC) 20 mg PO DAILY RF: 0 aspirin 81 mg tablet,delayed release (DR/EC) 81 mg PO DAILY RF: 0 calcium carbonate [Calcium 500] 500 mg calcium (1,250 mg) tablet 500 mg PO DAILY RF: 0 Lidocaine Viscous 2 % solution 1 applic MM QID PRN (Reason: pain) Qty: 600 RF: 0 benzonatate [Tessalon Perles] 100 mg capsule 100 mg PO TID PRN (Reason: cough) Qty: 14 RF: 0 Women's One Daily 18 mg iron-400 mcg-500 mg Ca Tablet 1 tab PO DAILY RF: 0 Discharge Instructions Instructions: Sinusitis (ED), Upper Respiratory Infection (ED) Additional Instructions: Follow up with primary care provider in 3-5 days. Return to ED sooner if any worsening or concerns. Increase oral fluids. Please take Tylenol or Ibuprofen with food every 4-6 hours as needed for pain and swelling. At this time antibiotics are not recommended unless you have symptoms for 10 days or longer. Use medications as directed. At this time your symptoms are consistent with a viral upper respiratory infection. It is very unlikely that this is from coronavirus. At this time you do not have the indications that the CDC would recommend for testing for coronavirus. Out of an abundance of precaution it would be reasonable to self quarantine yourself for a total of 14 days or until completely symptom-free for greater than 24-48 hours. It would be prudent to wear a mask at all times, always wash your hands frequently, follow-up closely with your primary care provider. You can always call their office first. If you notice any worsening of your symptoms, or any new symptoms such as vomiting, diarrhea, fever, chills, shortness of breath, chest pain, numbness, weakness, or fainting, please CALL and then return immediately to the emergency department for reevaluation. Please CALL first and then follow up with your primary care provider as soon as possible for reassessment and reevaluation. As always, it was a pleasure participating in your medical care today. Stand Alone Forms: Work Release Referrals: Vicente Whitehead NP [Primary Care Provider] - Medical Decision Making 49-year-old female presents with 3 days of runny nose, sinus pressure and nonproductive cough. Denies fever recent travel or exposure to anyone with recent travel. She does work in [employer]. On exam she does have some maxillary sinus tenderness to palpation. The patient denies any recent foreign travel or contact with recent immigrants, Travelers, or peoples of [place] or [facility]. The patient denies any recent travel to high risk countries or high risk areas in the [place], or other areas of noted or significant coronavirus infection. Flu swab ordered and Tessalon Perles p.o. Influenza swab negative for flu a and B patient given prescription for Tessalon Perles, albuterol inhaler, and fluticasone nasal spray. At this time I did not treat her with antibiotics due to short length of illness as well as as patient is only been ill for 3 days. Instructed on home care including increasing oral fluids and taking medications as directed. Verbalized understanding. HPI General Mode of arrival: ambulatory. Date/Time Provider Initiated Documentation: 02/06/20 21:34. Limitations to Documentation: no limitations. Information obtained by: patient. HPI Narrative: 49-year-old female presents with 3 days of runny nose, sinus pressure and nonproductive cough. Denies fever recent travel or exposure to anyone with recent travel. She does work in [employer]. On exam she does have some maxillary sinus tenderness to palpation. Related Data Home Medications Medication Instructions Recorded Confirmed aspirin 81 mg tablet,delayed 81 mg PO DAILY 01/28/19 02/06/20 release calcium carbonate 500 mg calcium 500 mg PO DAILY tab 01/28/19 02/06/20 (1,250 mg) tablet omeprazole 20 mg tablet,delayed 20 mg PO DAILY 01/28/19 02/06/20 release Women's One Daily 1 tab PO DAILY 02/09/19 02/06/20 Lidocaine Viscous 1 applic MM QID PRN #600 ml 07/25/19 02/06/20 benzonatate [Tessalon Perles] 100 mg PO TID PRN #14 cap 07/25/19 02/06/20 albuterol sulfate 2 puff IH Q6H PRN #8 gm 02/06/20 benzonatate [Tessalon Perles] 100 mg PO BID PRN #10 cap 02/06/20 fluticasone furoate 1 spray ISAIAS DAILY 7 Days #9.1 ml 02/06/20 Previous Rx's Medication Instructions Recorded Lidocaine Viscous 1 applic MM QID PRN #600 ml 07/25/19 benzonatate [Tessalon Perles] 100 mg PO TID PRN #14 cap 07/25/19 albuterol sulfate 2 puff IH Q6H PRN #8 gm 02/06/20 benzonatate [Tessalon Perles] 100 mg PO BID PRN #10 cap 02/06/20 fluticasone furoate 1 spray ISAIAS DAILY 7 Days #9.1 ml 02/06/20 Allergies Allergy/AdvReac Type Severity Reaction Status Date / Time Sulfa (Sulfonamide Allergy Intermediate Skin Rash Verified 07/25/19 09:12 Antibiotics) gabapentin AdvReac severe Verified 07/25/19 09:12 dizziness General Stated Complaint: RespSymp ELENI: 4 Review of Systems Narrative: Constitutional: Negative for weight loss, alert and oriented, well groomed, normal body habitus, appears comfortable. HEENT: Denies trauma, headaches, blurry vision, positive runny nose, sinus pressure, and ear pain.. Chest: Denies chest pain, palpitations, irregular rhythm, hypertension. Respiratory: Denies Shortness of breath, hemoptysis. Positive nonproductive cough. GI: Denies abdominal pain, nausea, vomiting, diarrhea, constipation. : Denies dysuria, hematuria, flank pain, rectal bleeding. Neuro: Denies dizziness, blurry vision, weakness, syncope, headache or facial numbness. Hematologic: Denies easy bruising, intolerance to heat or cold, hair loss. [facility] Medical History Colorectal polyps (Acute) Fibrocystic breast disease (Chronic) GERD (gastroesophageal reflux disease) (Chronic) Hematochezia (Acute) Internal hemorrhoids without complication (Acute) Knee joint pain (Chronic) Paresthesia and pain of extremity (Chronic) Surgical History H/O esophagogastroduodenoscopy (Chronic ~02/09/19) History of tubal ligation (Chronic) S/P colonoscopy (Acute ~02/09/19) Social History Smoking/Tobacco Use Status: Never Alcohol Intake: current Alcohol Intake frequency: a few times a month Alcohol type: wine Drug use: Never Substance use type: does not use 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 Appears stated age. Normal body habitus. Head: Normocephalic, no trauma. Eyes: Pupils PERRLA, Red reflex noted, EOM's intact. Eyelids symmetrical withour lesions, discharge, or swelling. ENT: Bilateral TM's WNL, External ear normal to inspection, no mastoid TTP, swelling, or erythema, Nasal turbinates WNL, no nasal discharge. Normal dentition, Posterior pharynx WNL, no exudate. Maxillary sinus tenderness to palpation. Chest: RRR, Normal S1, S2, distal pulses intact. Resp: Lungs clear to auscultation bilaterally, no wheezes, rales, or rhonchi. Musculoskeletal: Normal gait, 5/5 strength to all four extremities. Skin: No suspicious rashes or lesions. Capillary refill less than 2 sec. Neurologic: Cranial nerves II-XII intact. Alert and oriented x 3. DTR's intact. Hematologic/Lymphatic: No ecchymosis, no lymphadenopathy. Course Vital Signs Vital signs: Vital Signs Temperature 36.6 C 02/06/20 21:39 Pulse 99 H 02/06/20 21:39 Respiratory Rate 16 02/06/20 21:39 Blood Pressure 130/80 02/06/20 21:39 Pulse Oximetry 96 02/06/20 21:39 Temperature 36.6 C 02/06/20 21:39 Temperature Source Temporal Artery Scan 02/06/20 21:39 Pulse 99 H 02/06/20 21:39 Respiratory Rate 16 02/06/20 21:39 Respiratory Effort 02/06/20 21:45 Blood Pressure 130/80 02/06/20 21:39 Pulse Oximetry 96 02/06/20 21:39 Oxygen Delivery Method Room Air 02/06/20 21:39 Oxygen Flow Rate 0 02/06/20 21:39
[2020-02-06] MEDS: Benzonatate 100 MG CAP PO (22:19)
== END 2020-02-06 22:50 | disposition home or self-care (01) ==
LOC: ER 22:42
PROVIDERS: Emergency Provider Registered Nurse Emergency; PCP Nurse Practitioner Family
DX: J06.9 Acute upper respiratory infection, unspecified (principal); B34.9 Viral infection, unspecified; J01.00 Acute maxillary sinusitis, unspecified
CPT/HCPCS: 87449; 99283

== ENCOUNTER 2020-08-04 14:36 | Outpatient (REF) | payer OTHER, SELFPAY ==
[2020-08-04 20:39] LABS: Absolute Basophil Count 0.05 10^3/uL (0.0-0.2); Absolute Lymphocyte Count 1.44 10^3/uL (1.2-3.4); Absolute Monocyte Count 0.53 10^3/uL (0.1-0.8); Absolute Neutrophil Count 1.93 10^3/uL (1.2-6.7); Basophils % 1.2; Eosinophils % 2.5; HCT 45.1 % (36.0-46.0); HGB 14.8 g/dL (11.2-15.7); Lymphocytes % 35.6; MCH 28.8 pg (27.0-33.0); MCHC 32.8 % (32.0-36.0); MCV 87.7 fL (80-95); MPV 9.7 fL (8.0-11.0); Monocytes % 13.1; Neutrophils % 47.6; Nucleated RBC 0 %; Platelet Count 379 10^3/uL (130-400); RBC 5.14 10^6/uL (3.93-5.22); RDW 13.6 % (11.7-14.6); RDW-SD 43.9 fL; WBC 4.05 10^3/uL (4.4-10.8)
[2020-08-04 21:33] LABS: ALT 56 U/L (14-59); AST 20 U/L (15-37); Albumin 3.9 g/dL (3.4-5.0); Alkaline Phosphatase 116 U/L (46-116); Anion Gap 8.9 mmol/L (3-11); BUN 19 mg/dL (7-18); Bilirubin, Total 0.4 mg/dL (0.2-1.0); C-Reactive Protein 0.38 mg/dL (0.0-0.3); CO2 26.1 mmol/L (21.0-32.0); CREATININE 0.76 mg/dL (0.55-1.02); Chloride 104 mmol/L (98-107); Glucose 87 mg/dL (74-106); Potassium 4.3 mmol/L (3.5-5.1); Sodium 139 mmol/L (136-145); TSH (W/Ref FT4) 0.88 uIU/mL (0.36-3.74); Total Protein 7.4 g/dL (6.4-8.2)
[2020-08-04 21:59] LABS: Calculated LDL 168 mg/dL (<100); Cholesterol 238 mg/dL (<200); HDL Cholesterol 59 mg/dL (40-60); Triglyceride 59 mg/dL (<150)
[2020-08-04 22:23] LABS: ESR 8 mm/hr (0-20)
[2020-08-06 20:03] LABS: Rheumatoid Factor <8.6 IU/mL (<12.0)
[2020-08-07 10:29] LABS: Lyme Ab w Rflx to Lyme Confirm Negative (Negative)
[2020-08-07 15:16] LABS: ANA Interpretation Positive (Negative); ANA Titer Pattern 1:320 Speckled
[2020-08-08 21:13] LABS: Anaplasma phagocytophilum Negative (Negative); B. miyamotoi PCR Negative (Negative); Babesia divergens/MO-1 Negative (Negative); Babesia duncani Negative (Negative); Babesia microti Negative (Negative); Ehrlichia chaffeensis Negative (Negative); Ehrlichia ewingii/canis Negative (Negative); Ehrlichia muris eauclairensis Negative (Negative)
== END 2020-08-04 14:56 ==
LOC: NCHCN 14:36
PROVIDERS: PCP Nurse Practitioner Family; Visit Provider Nurse Practitioner Family
DX: Z00.00 Encounter for general adult medical examination without abnormal findings (principal); R10.84 Generalized abdominal pain; M25.50 Pain in unspecified joint; K76.89 Other specified diseases of liver; Z13.220 Encounter for screening for lipoid disorders; Z13.29 Encounter for screening for other suspected endocrine disorder
CPT/HCPCS: 80053; 80061; 85652; 87798; 84443; 85025; 86038; 86140; 86431; 86618

== ENCOUNTER 2021-10-01 02:59 | Outpatient (CLI) | payer OTHER, SELFPAY ==
[2021-10-01 09:33] LABS: Source Nasal/Nares
[2021-10-01 12:50] LABS: COVID-19 PCR Negative (Negative)
== END 2021-10-01 03:00 | disposition home or self-care (01) ==
LOC: LBO 02:59
PROVIDERS: PCP Nurse Practitioner; Visit Provider Surgery
DX: Z20.822 Contact with and (suspected) exposure to COVID-19 (principal); Z01.818 Encounter for other preprocedural examination
CPT/HCPCS: 87635

== ENCOUNTER 2021-10-02 08:18 | Day surgery (SDC) | payer OTHER, SELFPAY ==
[2021-10-02] VITALS (13 sets, daily range): BP systolic 95–133; BP diastolic 44–92; PULSE 60–78; RESP 11–24; TEMP 36–36.9; O2SAT 90–97; BMI 29.5
[2021-10-02] MEDS: Lactated Ringers 1,000 ML 80 ML IV (09:01)
[2021-10-02] MEDS: Acetaminophen 500 MG TAB 1000 MG PO (09:05)
--- NOTE | 2021-10-02 09:08 | W.ANESPRE ---
General Info Date of Service Date Performed: 10/02/21 Height: 5 ft 2.5 in Weight: 74.3 kg Body Mass Index (BMI): 29.5 Surgical Procedure: Operation Date: 10/02/21 10:10 Proposed Procedures Side Surgeon p Cholecystectomy Laparoscopic possible open Sabrina Rivas, DO Meds Allergies and Home Medications Allergies Allergy/AdvReac Type Severity Reaction Status Date / Time Sulfa (Sulfonamide Allergy Intermediate Skin Rash Verified 10/02/21 08:36 Antibiotics) gabapentin AdvReac severe Verified 10/02/21 08:36 dizziness Home Medication Medication Instructions Recorded aspirin 81 mg tablet,delayed 81 mg PO DAILY 01/28/19 release calcium carbonate 500 mg calcium 500 mg PO DAILY tab 01/28/19 (1,250 mg) tablet Women's One Daily 1 tab PO DAILY 02/09/19 omeprazole 40 mg capsule,delayed 40 mg PO DAILY 09/06/21 release oxycodone 5 mg PO Q8H PRN 10/01/21 lidocaine See Rx Instructions .ROUTE .COMPLEX 10/02/21 sucralfate 1 g PO Q6H WHILE AWAKE 10/02/21 tramadol 50 mg PO Q6H PRN PRN 10/02/21 Current Visit Medications: Current Medications Generic Name Dose Route Start Last Admin Trade Name Freq PRN Reason Stop Dose Admin Acetaminophen 1,000 mg 10/02/21 06:00 10/02/21 09:05 Acetaminophen 500 Mg Tab PO 10/02/21 16:00 1,000 mg PREOP SHARITA Administration Ringer's Solution 1,000 mls @ 80 mls/hr 10/02/21 06:00 10/02/21 09:01 IV 10/31/21 23:59 80 mls/hr INFUSION SHARITA Administration Cefazolin Sodium 2,000 mg/ 100 mls @ 200 mls/hr 10/02/21 06:00 Sodium Chloride IVPB 10/02/21 16:00 PREOP SHARITA IV Miscellaneous Supplies 1 each 10/02/21 06:00 Iv Access IV 10/31/21 23:59 DIRECTED SHARITA Magnesium Sulfate 16.24 meq 10/02/21 07:00 Magnesium Sulfate 8.12 Meq/2 Ml Vial IV PRN PRN Sodium Chloride 0 ml 10/02/21 06:00 Normal Saline Flush 10 Ml Syr IV 10/31/21 23:59 PRN PRN Sodium Chloride 0 ml 10/02/21 06:00 Normal Saline 10 Ml Vial IJ 10/31/21 23:59 DIRECTED PRN Sterile Water 0 ml 10/02/21 06:00 Water,Injection,Sterile 10 Ml Vial IJ 10/31/21 23:59 DIRECTED PRN PFSH Active Problems Active Problems: Problem Status Onset Code Recurrent biliary colic K80.50 Gallstones K80.20 Bursitis, prepatellar, right M70.41 Plantar fasciitis, right M72.2 Knee pain M25.569 Internal hemorrhoids without complication K64.8 Colorectal polyps K63.5 Hematochezia K92.1 Gastroesophageal reflux disease K21.9 S/P colonoscopy ~02/09/19 Z98.890 H/O esophagogastroduodenoscopy ~02/09/19 Z98.890 Medical History Active Problem List Recurrent biliary colic (Acute) Gallstones (Acute) Bursitis, prepatellar, right (Acute) Plantar fasciitis, right (Acute) Knee pain (Chronic) Internal hemorrhoids without complication (Acute) Colorectal polyps (Acute) Hematochezia (Acute) Gastroesophageal reflux disease (Chronic) S/P colonoscopy (Acute ~02/09/19) H/O esophagogastroduodenoscopy (Chronic ~02/09/19) Medical History Abdominal pain Arthralgia Bilateral ankle joint pain Biliary colic Fatigue Fibrocystic breast disease Gall stones GERD (gastroesophageal reflux disease) Hematochezia Hip pain, left Hot flashes Knee joint pain Liver cyst Lower back pain Pain in right shoulder Paresthesia and pain of extremity Plantar fasciitis Tubular adenoma of colon Surgical History Surgical History History of tubal ligation Tobacco Smoking/Tobacco Use Status: Former Tobacco Use Alcohol Alcohol Intake: current Alcohol intake frequency: a few times a month Alcohol type: wine Substance Use Substance use: Never Substance use type: does not use Vital Signs and Lab Results Vital Signs Most Recent Vital Signs in EMR: Most Recent Vital Signs Temp Pulse Resp BP Pulse Ox 36.4 C L 67 18 133/92 H 97 10/02/21 08:44 10/02/21 08:44 10/02/21 08:44 10/02/21 08:44 10/02/21 08:44 Lab Results Blood Type / Crossmatch: No Data to Display Complete Blood Count: No Data to Display Complete Metabolic Panel: No Data to Display Liver Function Panel: No Data to Display Coagulation Panel: No Data to Display Cardiac Panel: No Data to Display Arterial Blood Gas: No Data to Display Venous Blood Gas: No Data to Display Pancreas Panel: No Data to Display Thyroid Panel: No Data to Display Infectious Disease: Coronavirus (COVID-19)(PCR) Negative (Negative) 10/01/21 09:16 10/01/21 Coronavirus 2019 Source Nasal/Nares 10/01/21 09:16 10/01/21 Blood Cultures: No Data to Display Toxicology Panel: No Data to Display Panel: No Data to Display Anesthesia Assessment and Plan Anesthesia History Personal History: No History of Anesthesia Complications Family History: No Family History of Anesthesia Complications Exercise Tolerance Exercise Tolerance: Metabolic Equivalents>4 Cardiac & Pulmonary Exam Cardiac Exam: Normal S1/S2 Heart Sounds Pulmonary Exam: Clear Bilateral Breath Sounds Implantable Cardiac Device Does patient have a Pacemaker or an ICD?: No Airway Exam Known Difficult Airway: No Mallampati Class: 1 Mouth Opening: Normal (> 3cm) Thyromental Distance: Less than 3 cm Neck Range of Motion: Full ROM Neck Circumference: Normal Teeth Condition: Normal Dentition ASA Classification ASA Score: ASA 2 Emergency Case?: No NPO Status NPO Status: NPO Clears >2 hours, Solids >8 hours Status Status: Not Relevant due to Medical History Anesthesia Plan Resuscitation Status: Full Code Anesthesia Technique: General Anesthesia Airway Planned: Endotracheal Tube Monitors Used: Standard Monitors Preoperative Comments:: 50 yo female for lap christiano. Has had significant pain over the weekend, currently 01/24. has not eaten since Friday due to pain and has had waves of nausea. Denies significant pmhx. Plan: GA/ETT.
--- NOTE | 2021-10-02 11:55 | ROE_ITS ---
Date of service: 10/02/21 Time of Service: 11:55 Operative Note Operative Note DATE OF PROCEDURE: 10/02/21 PRE-OP DIAGNOSIS: chronic christiano w/ stones POST-OP DIAGNOSIS: same PROCEDURE: lap christiano SURGEON: Sabrina Jacobo CLIENT SERVICE EXECUTIVE: Bree Jacobson ANESTHESIA TYPE: Local By Surgeon and General LMA/ETT Refer to Anesthesia Record ESTIMATED BLOOD LOSS: 5 PATHOLOGY: other COMPLICATIONS: None Patient was transported to: PACU Patient's condition: stable Procedure Description: INDICATIONS: The pt is seen at the request of there PCP regarding acute on chronic cholecystitis, cholelithiasis. The pt has failed outpt conservative medical measures and is here today for laparoscopic cholecystectomy. Informed consent was obtained, explaining risks and benefits of the procedure including but not limited to bleeding, infection, pneumonia, blood clots, possible damage to bowel, bladder, blood vessels, bile ducts, possible open procedure, complications of general anesthesia and other unforetold complications. PROCEDURE: The patient agrees and is brought to the operative room suite and placed in supine position. Anesthesia was administered per the Department of Anesthesia. The patient did receive IV antibiotics. NG tube and Garvin catheter are placed. The patient was prepped and draped in the usual sterile fashion using DuraPrep scrub solution. Pause for the cause was done. 20 mL of 1% buffered lidocaine was used for local anesthetization. A 5mm incision was made in the umbilicus. A cutdown was done to enter the abdomen-she had had a previous laparoscopic tubal ligation.. A finger was placed into the abdomen and swept. There are no adhesions. The 5 mm port is inserted in the abdomen evaluation is begun.. The camera was inserted through the port and shows no damage to underlying structures. A 10 mm port was then placed in the epigastric position under direct visualization following creation of local field blocks as well as two 5 mm ports in the right upper quadrant. The gallbladder fundus was grasped and retracted towards the right shoulder. Infundibulum was grasped and retracted laterally. She does have some omental adhesions up to the gallbladder. These are taken down bluntly. The hepat-duodenal ligament is entered. The cystic duct and artery are dissected out and the most inferior portion of the gallbladder plate is removed from the liver and the critical view of safety was obtained after clearing away all fatty material. Endo Clips were placed across the duct and artery and these structures are divided. The remainder of the gallbladder was excised from the liver bed. The gallbladder was placed in a bag and brought out. Examination of the gallbladder shows indeed the cystic duct and artery to have been divided. Surgicel and flow seal was used for hemostasis in the bed of the liver. the remainder of the abdomen was copiously irrigated with a liter of saline. All saline is removed. There is no bleeding or bile leakage from the liver bed or the clips sites. An EndoClose needle was used to close the 10 mm port site with an 0 Vicryl. All ports and instruments are removed. SPonge and needle counts are correct. Pneumoperitoneum is evacuated and the port sites are monitored to make sure there is no bleeding at the time of desufflation. Port sites are irrigated and the skin is closed with 4-0 Monocryl in a running subcuticular fashion. Skin glue sterile dressings are applied. The patient tolerated the procedure well without complications, transferred to the recovery room in stable condition. SABRINA JACOBO, DO
[2021-10-02] MEDS: Bupivacaine 0.25% Pres-Free 30 ML VIAL (12:33)
--- NOTE | 2021-10-02 13:02 | GB_PTH ---
PATIENT: Jacquie Mcguire LOC: [facility] U#:[id number] AGE/SX: 50/F ROOM: RE10/02/[address]: Sabrina Rivas : 1970 BED: DIS: 10/02/2021 SPEC #: [id number] RECD: 10/02/21 18:28 STATUS: BERTO REQ #: [id number] JEROMY: 10/02/21 13:[address]: Sabrina Rivas DEPT: Surgical Specimen RECD BY: Sarah Gonzales ENTERED: 10/02/21 18:28 SP TYPE: GB OTHR DR: Mary Bravo Tissues: 1 - GALLBLADDER Procedures: GROSS AND MICRO LEVEL 3 Comments: [id number]
[2021-10-02] MEDS: Cellulose,Oxidized 4X8 1 PACKET MC (13:09)
--- NOTE | 2021-10-02 13:54 | PDOC.DSDIS_ITS ---
Discharge Plan Disposition Patient Disposition: HOME Condition: Good Discharge Details Reason For Visit: gallbladder removal Attending Provider: Sabrina Rivas Primary Care Provider: Mary Bravo Home Meds and New Rx's Prescriptions: New ondansetron HCl [Zofran] 4 mg tablet 4 mg PO Q6H PRN (Reason: nausea) Qty: 4 RF: 0 tramadol 50 mg tablet 50 mg PO Q6H PRN (Reason: pain >7) Qty: 10 RF: 0 Continued calcium carbonate [Calcium 500] 500 mg calcium (1,250 mg) tablet 500 mg PO DAILY RF: 0 omeprazole 40 mg capsule,delayed release(DR/EC) 40 mg PO DAILY RF: 0 Women's One Daily 18 mg iron-400 mcg-500 mg Ca Tablet 1 tab PO DAILY RF: 0 oxycodone 5 mg Tablet 5 mg PO Q8H PRN (Reason: Pain) RF: 0 sucralfate 1 gram tablet 1 g PO Q6H WHILE AWAKE RF: 0 tramadol 50 mg tablet 50 mg PO Q6H PRN PRNRF: 0 lidocaine 5 % adhesive patch,medicated See Rx Instructions .ROUTE .COMPLEX RF: 0 Discontinued aspirin 81 mg tablet,delayed release (DR/EC) 81 mg PO DAILY RF: 0 Discharge Instructions Additional Instructions: Care after Gallbladder Surgery -Pain control: For the first 72 hours after surgery, take you pain meds continuously and not just when you have pain. Alternate Tylenol 1000mg by mouth every 8 hours, and Ibuprofen 600mg every 6 hours. Make sure you take ibuprofen with food and not on an empty stomach. Use the tramadol for breakthrough pain- pain that is greater than a 7. - Use ICE! Ice really helps to keep the swelling down, and swelling causes pain. Twenty minutes on, and then off, continuously for the first 72hours. After the first 72hrs, you can just use the Tylenol, ibuprofen or Celebrex, and ice, when you have pain. If you are taking narcotic pain medication, follow the instructions on the label and do not drive. Pain medications can make you very constipated. Make sure you are moving your bowels daily. If not, take Miralax, milk of magnesia or magnesium citrate. - Anesthesia makes you very constipated. Take a dose of milk of magnesia the morning after surgery. -Hold asiprin while taking ibuporfen 7-10 days. ? Use an ice bag for the first 72 hours. This helps to decrease swelling, which causes pain. It is normal to be more sore/painful and swollen towards the end of the day and first thing in the morning. ? Gallbladder surgery can make you very nauseated; use Zofran for nausea, for the first 24 hours. The nausea generally stops after 24 hours. ? Use milk of magnesia or prune juice to prevent constipation (this is a particular side effect of pain medication and anesthesia). Do not allow yourself to become constipated. ? Avoid fatty or greasy foods; introduce these slowly, with care, after about 1 month. High-fat foods include: ? Foods that are fried, like Chinese fries and potato chips ? High-fat meats, such as bella, bologna, sausage, ground beef, and ribs, pork products ? High-fat dairy products, such as cheese, ice cream, cream, whole milk, and sour cream ? Pizza ? Foods made with lard or butter ? Creamy soups or sauces ? Meat gravies ? Chocolate ? Oils, such as palm and coconut oil ? Skin of chicken or turkey Nuts and nut butters [place]adoes ? Start out eating very small, bland amounts of food. Do not take pain pills on an empty stomach. - You will notice purple discoloration around the incisions. This is the ?skin glue?. This will wear off on its own. It is OK to shower after 24hrs. You do not need to cover the incisions. - -You should walk frequently, gradually, increasing the distance. You may climb stairs, just go slowly. ? Do not go swimming or sit in a hot tub for two weeks. ? There are no stitches to remove. ? Do not drive your car x72hrs and then only if you have no pain and can move freely. Do not drive if you are taking pain narcotic pain medications. ? You may resume sexual activity whenever pain and soreness subside, usually in 2 weeks. ? Do no lift anything over 5 lbs. for two weeks. ? You may return to work in one week, or when you feel able, provided you do not have to do any heavy lifting or prolonged standing. ? You should return to Dr. Stoiber?s office for a post-op appointment about one week after surgery. Please call the Surgical Clinic at: [phone] to schedule an appointment. My Medications for pain and nausea are: ibuprofen and ultram, and zofran When to Call the Office: ? If the incision becomes red or swollen, or there is more than a little drainage from it. ? If you develop a temperature higher than 100.5 F. ? If your eyes turn yellow ? Vomiting and can?t keep fluids down Activity:: see above Remove Dressings/Wound Care:: 24 hours Shower/Bathe:: 24 hours Diet:: low fat DS: Diagnosis Discharge Diagnosis (1) Gallstones: Status: Acute
[2021-10-02] MEDS: HYDROmorphone 2 MG/ML VIAL IVP ×2 (13:56→14:21)
--- NOTE | 2021-10-02 14:45 | W.ANESPOSTOP ---
Postoperative Evaluation Date, Time and Location Date Performed: 10/02/21 Time Performed: 14:45 Patient Location: PACU Vital Signs Most Recent Imported Vital Signs: Most Recent Vital Signs Temp Pulse Resp BP Pulse Ox 36.1 C L 60 13 104/44 L 97 10/02/21 14:34 10/02/21 14:34 10/02/21 14:34 10/02/21 14:34 10/02/21 14:34 Pain Score Most Recent Pain Score: Most Recent Pain Score Pain Level 7 10/02/21 08:44 Assessment Mental Status: Arousable with meaningful communication Airway and Respiratory Function: Patent airway with normal (patient baseline) respiratory exam Cardiovascular Function: Hemodynamically Stable Hydration Status: Adequately Hydrated Nausea & Vomiting: No Nausea or Vomiting Pain: Pain is tolerable per patient Peripheral Nerve Block: Patient did not receive a nerve block
[2021-10-02] MEDS: traMADol 50 MG TAB PO (15:55)
--- NOTE | 2021-10-02 18:43 | NUR.NOTE ---
Nursing Note: Pharmacy ([facility]) called regarding the prescription for tramadol that Rob Feldman wrote earlier today. Records show that patient had picked up a quantity for 15 tabs for a 4 day supply of Tramadol from [facility] in [facility]. Placed call to Dr. Rivas and updated her asking for further guidance. Dr. Rivas states to not fill the prescription, that the patient can use what she picked up yesterday. Called [facility] and spoke with Tremaine relaying this and he advised he will dispose of the script. 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
== END 2021-10-02 17:00 | disposition home or self-care (01) ==
PROVIDERS: PCP Nurse Practitioner; Visit Provider Surgery
PROC: 0FT44ZZ Resection of Gallbladder, Percutaneous Endoscopic Approach (ICD-10-PCS; CPT 47562; principal; 2021-10-02 10:00)
DX: K80.10 Calculus of gallbladder with chronic cholecystitis without obstruction (principal)
CPT/HCPCS: 47562; 81025; 88304; J1100; J1720; J1885; J2250; J2405; J3475